=== PATIENT | female | born 1975 | race Caucasian/White ===

== ENCOUNTER 2017-03-30 02:50 | Emergency (ER) | payer OTHER ==
[2017-03-30 03:20] LABS: APPEARANCE CLEAR (CLEAR); BACTERIA FEW /hpf (NONE SEEN); BILIRUBIN NEGATIVE (NEGATIVE); COLOR YELLOW (YELLOW); EPITHELIAL CELLS 0-5 /hpf (0-5); GLUCOSE NEGATIVE (NEGATIVE); KETONE NEGATIVE (NEGATIVE); NITRITE NEGATIVE (NEGATIVE); PROTEIN NEGATIVE (NEGATIVE); RED CELLS - URINE NONE SEEN /hpf (0-5); SPECIFIC GRAVITY 1.005 (1.005-1.020); UROBILINOGEN NORMAL (NORMAL)
[2017-03-30 03:21] LABS: BASOPHILS 0.3 % (0-2); HEMATOCRIT 39.4 % (36.0-48.0); HEMOGLOBIN 13.8 g/dL (12-16); IMMATURE GRANULOCYTES 0.2 % (0-5); LYMPHOCYTES 30.2 % (15-50); MCH 34.2 pg (26.0-34.0); MCV 97.5 fL (80.0-100.0); MEAN PLATELET VOLUME 9.6 fL (7.4-10.4); NEUTROPHILS 59.3 % (40-80); PLATELET COUNT 372 10x3/uL (130-400); RBC 4.04 10x6/uL (4.00-5.40); RDW 12.6 % (11.5-14.5); WBC 12.8 10x3/uL (4.8-10.8)
[2017-03-30 03:33] LABS: ALBUMIN 3.2 g/dL (3.4-5.0); ALKALINE PHOSPHATASE 95 U/L (46-116); ALT (SGPT) 15 U/L (10-68); BILIRUBIN - TOTAL 0.17 mg/dL (0.2-1.3); CALC OSMOLALITY 283 mosm/kg (275-300); CALCIUM 8.4 mg/dL (8.5-10.1); CARBON DIOXIDE 32.3 mmol/L (21.0-32.0); CHLORIDE - SERUM 101 mmol/L (98-107); CREATININE - SERUM 0.7 mg/dL (0.6-1.3); GLUCOSE 93 mg/dL (74-106); POTASSIUM - SERUM 3.1 mmol/L (3.5-5.1); PROTEIN - SERUM 7.1 g/dL (6.4-8.2); SODIUM 143 mmol/L (136-145); UREA NITROGEN 11 mg/dL (7-18); eGFR NON AFRICAN AMERICAN > 90 mL/min (90-120)
== END 2017-03-30 05:57 | disposition home or self-care (01) ==
LOC: D.ER 02:50
PROVIDERS: Emergency Medicine
DX: I10 Essential (primary) hypertension (principal); E87.6 Hypokalemia; N39.0 Urinary tract infection, site not specified; K59.00 Constipation, unspecified

== ENCOUNTER 2018-01-30 17:42 | Emergency (ER) | payer OTHER ==
[~2018-01-30] VITALS: Ht 162.6 cm; Wt 86.4 kg
[2018-01-30 17:57] VITALS: Ht 162.6 cm; Wt 86.4 kg
[2018-01-30] MEDS ORDERED: EFFEXOR XR150 MG PO (18:00)
[2018-01-30] MEDS ORDERED: METOPROLOL TART50 MG PO (18:00)
[2018-01-30 19:15] LABS: APPEARANCE HAZY (CLEAR); BILIRUBIN NEGATIVE (NEGATIVE); COLOR YELLOW (YELLOW); GLUCOSE NEGATIVE (NEGATIVE); KETONE NEGATIVE (NEGATIVE); NITRITE NEGATIVE (NEGATIVE); PROTEIN NEGATIVE (NEGATIVE); UROBILINOGEN NORMAL (NORMAL)
[2018-01-30 19:25] LABS: WHITE CELLS - URINE 0-5 /hpf (0-5)
[2018-01-30 19:26] LABS: AMORPHOUS SEDIMENT <1+ /lpf (NONE SEEN); BACTERIA MODERATE /hpf (NONE SEEN); EPITHELIAL CELLS 0-5 /hpf (0-5); RED CELLS - URINE 0-5 /hpf (0-5)
[2018-01-30 19:30] LABS: BASOPHILS 0.5 % (0-2); EOSINOPHILS 2.7 % (0-7); HEMATOCRIT 44.3 % (36.0-48.0); IMMATURE GRANULOCYTES 0.2 % (0-5); LYMPHOCYTES 25.1 % (15-50); MCH 33.7 pg (26.0-34.0); MCHC 33.9 g/dL (31.0-37.0); MCV 99.6 fL (80.0-100.0); MEAN PLATELET VOLUME 10.1 fL (7.4-10.4); MONOCYTES 5.2 % (2-11); NEUTROPHILS 66.3 % (40-80); PLATELET COUNT 324 10x3/uL (130-400); RBC 4.45 10x6/uL (4.00-5.40); RDW 12.9 % (11.5-14.5); WBC 10.9 10x3/uL (4.8-10.8)
[2018-01-30 19:48] LABS: ALBUMIN 3.4 g/dL (3.4-5.0); ALKALINE PHOSPHATASE 74 U/L (46-116); ALT (SGPT) 16 U/L (10-68); CALC OSMOLALITY 285 mosm/kg (275-300); CALCIUM 8.5 mg/dL (8.5-10.1); CARBON DIOXIDE 27.1 mmol/L (21.0-32.0); CHLORIDE - SERUM 105 mmol/L (98-107); CREATININE - SERUM 0.8 mg/dL (0.6-1.3); PROTEIN - SERUM 7.1 g/dL (6.4-8.2); SODIUM 142 mmol/L (136-145); UREA NITROGEN 13 mg/dL (7-18); eGFR NON AFRICAN AMERICAN 82 mL/min (90-120)
[2018-01-30 19:50] LABS: GLUCOSE 159 mg/dL (74-106)
[2018-01-30] MEDS ORDERED: PHENERGAN25 M1 PO (21:53)
[2018-01-30] MEDS ORDERED: CIPRO500 MG PO (21:53)
[2018-01-30] MEDS ORDERED: TORADOL10 MG PO (21:53)
[2018-01-30 22:35] VITALS: BP 158/82
== END 2018-01-30 22:15 | disposition home or self-care (01) ==
LOC: D.ER 17:42
PROVIDERS: Family Medicine
DX: R10.9 Unspecified abdominal pain (principal); R31.9 Hematuria, unspecified; I10 Essential (primary) hypertension; F17.200 Nicotine dependence, unspecified, uncomplicated

== ENCOUNTER 2018-02-06 02:57 | Emergency (ER) | payer OTHER ==
[~2018-02-06] VITALS: Ht 162.6 cm; Wt 86.2 kg
[~2018-02-06 02:57] MED LIST: CIPRO500 MG PO; EFFEXOR XR150 MG PO; METOPROLOL TART50 MG PO; PHENERGAN25 M1 PO; TORADOL10 MG PO
[2018-02-06 03:05] VITALS: Ht 162.6 cm; Wt 86.2 kg
[2018-02-06 03:40] LABS: BASOPHILS 0.3 % (0-2); EOSINOPHILS 2.3 % (0-7); HEMATOCRIT 41.8 % (36.0-48.0); HEMOGLOBIN 14.4 g/dL (12-16); IMMATURE GRANULOCYTES 0.4 % (0-5); MCHC 34.4 g/dL (31.0-37.0); MCV 98.6 fL (80.0-100.0); MEAN PLATELET VOLUME 9.5 fL (7.4-10.4); MONOCYTES 6.3 % (2-11); NEUTROPHILS 65.7 % (40-80); PLATELET COUNT 320 10x3/uL (130-400); RBC 4.24 10x6/uL (4.00-5.40); RDW 13.2 % (11.5-14.5); WBC 14.2 10x3/uL (4.8-10.8)
[2018-02-06 03:45] LABS: APPEARANCE HAZY (CLEAR); BILIRUBIN NEGATIVE (NEGATIVE); COLOR YELLOW (YELLOW); GLUCOSE NEGATIVE (NEGATIVE); KETONE NEGATIVE (NEGATIVE); NITRITE NEGATIVE (NEGATIVE); PROTEIN NEGATIVE (NEGATIVE); SPECIFIC GRAVITY 1.015 (1.005-1.020); UROBILINOGEN NORMAL (NORMAL)
[2018-02-06 03:49] LABS: BACTERIA MODERATE /hpf (NONE SEEN); EPITHELIAL CELLS 0-5 /hpf (0-5); RED CELLS - URINE 0-5 /hpf (0-5); WHITE CELLS - URINE 0-5 /hpf (0-5)
[2018-02-06 03:55] LABS: ALBUMIN 3.2 g/dL (3.4-5.0); ALKALINE PHOSPHATASE 106 U/L (46-116); ALT (SGPT) 84 U/L (10-68); CALC OSMOLALITY 280 mosm/kg (275-300); CALCIUM 9.2 mg/dL (8.5-10.1); CHLORIDE - SERUM 104 mmol/L (98-107); CREATININE - SERUM 0.8 mg/dL (0.6-1.3); GLUCOSE 114 mg/dL (74-106); POTASSIUM - SERUM 3.7 mmol/L (3.5-5.1); PROTEIN - SERUM 6.8 g/dL (6.4-8.2); SODIUM 139 mmol/L (136-145); UREA NITROGEN 17 mg/dL (7-18); eGFR NON AFRICAN AMERICAN 82 mL/min (90-120)
[2018-02-06 05:23] VITALS: BP 145/72
== END 2018-02-06 05:23 | disposition home or self-care (01) ==
LOC: D.ER 02:57
PROVIDERS: Family Medicine
DX: R10.9 Unspecified abdominal pain (principal); I10 Essential (primary) hypertension